=== PATIENT | female | born 1985 | race Caucasian/White ===

== ENCOUNTER 2016-11-16 12:10 | Emergency (ER) | payer MEDICAID ==
[~2016-11-16] VITALS: Ht 157.5 cm; Wt 75.3 kg
[2016-11-16 13:29] LABS: HEMATOCRIT 42.8 % (34.6-47.8); HEMOGLOBIN 14.6 g/dL (11.7-16.4); WHITE BLOOD COUNT 7.1 x10^3/uL (3.4-10)
[2016-11-16] MEDS ORDERED: ASPIRIN 81 MG TABLET CHEW ONE (13:29)
[2016-11-16] MEDS ORDERED: MAALOX/HYOSCYAMINE/LIDOCAINE 45 ML BTL ONE (13:29)
[2016-11-16] MEDS ORDERED: MAALOX/HYOSCYAMINE/LIDOCAINE 45 ML BTL PO ONE (13:30)
[2016-11-16] MEDS ORDERED: ASPIRIN 81 MG TABLET CHEW PO ONE (13:30)
[2016-11-16 13:43] LABS: ASPARTATE AMINO TRANSFERASE 16 U/L (15-37); BLOOD UREA NITROGEN 11 mg/dL (7-18)
[2016-11-16 13:48] LABS: IS PT STATUS REG ER OR PRE ER? YES
[2016-11-16] MEDS ORDERED: KETOROLAC 30 MG/1 ML IM ONE (14:30)
[2016-11-16] MEDS ORDERED: KETOROLAC 30 MG/1 ML ONE (14:51)
[2016-11-16 15:14] VITALS: BP 114/71
== END 2016-11-16 15:16 | disposition home or self-care (01) ==
LOC: ED 14:05
DX: R07.89 Other chest pain (principal); E83.51 Hypocalcemia; Z87.891 Personal history of nicotine dependence
CPT/HCPCS: 36415; 71010; 80053; 83690; 84484; 84703; 85025; 85379; 93005; 96372; 99285; J1885